=== PATIENT | male | born 1955 | race Caucasian/White ===

== ENCOUNTER 2024-02-18 10:09 | Outpatient (CLI) | payer MEDICARE, SELFPAY ==
--- NOTE | ~2024-02-18 | CT_ITS ---
EXAMINATION: CT shoulder LT wo con DATE: 02/18/2024 10:23 INDICATION: Left shoulder osteoarthritis. Preoperative planning. TECHNIQUE: Computed tomography (CT) of the left shoulder was performed without intravenous contrast. Automated exposure control and iterative reconstruction technique were employed. The dose-length prod uct was 763.13 mGy-cm. COMPARISON: None FINDINGS: There is posterior subluxation of humeral head with respect to glenoid. No fracture. There is advanced glenohumeral joint osteoarthritis including volume loss of the glenoid. There is a small glenohumeral joint effusion with loose bodies. There is moderate acromioclavicular joint osteoarthrit is. There is a 6 mm nodule in left lung upper lobe, probably benign. IMPRESSION: 1. Advanced left glenohumeral joint osteoarthritis. 2. Small left glenohumeral joint effusion with loose bodies. 3. Moderate acromioclavicular joint osteoarthritis. 4. 6 mm pulmonary nodule, probably benign. Consider noncontrast low-dose chest CT in 6-12 months. Reviewed, dictated and finalized at location B.
== END 2024-02-18 10:10 | disposition home or self-care (01) ==
LOC: ANHIMG 10:11
PROVIDERS: PCP Family Medicine; Visit Provider Orthopaedic Surgery
DX: M19.012 Primary osteoarthritis, left shoulder (principal); R91.1 Solitary pulmonary nodule; M24.012 Loose body in left shoulder
CPT/HCPCS: 73200

== ENCOUNTER 2024-05-01 09:59 | Outpatient (CLI) | payer MEDICARE, SELFPAY ==
[2024-05-01 11:12] LABS: Basophils Absolute Auto 0.1 K/mm3 (0.0-0.1); Basophils Percent Auto 0.7 % (0.2-1.2); Eosinophils Absolute Auto 0.1 K/mm3 (0-0.3); Eosinophils Percent Auto 1.7 % (0-4.4); Hematocrit 49.9 % (42.0-52.0); Hemoglobin 16.5 g/dL (14.0-18.0); Immature Granulocyte Absolute 0.02 K/mm3 (0.00-0.031); Immature Granulocyte Percent A 0.3 % (0-0.5); Lymphocytes Absolute Auto 0.86 K/mm3 (0.9-3.2); Mean Corpuscular HGB Conc 33.1 g/dl (32-36); Mean Corpuscular Hemoglobin 29.9 pg (26-34); Mean Corpuscular Volume 90.6 fl (80-100); Mean Platelet Volume 10.8 fl (7.4-10.4); Monocytes Absolute Auto 0.5 K/mm3 (0.1-0.6); Monocytes Percent Auto 7.5 % (2.6-8.5); Neutrophils Absolute Auto 5.6 K/mm3 (1.3-6.7); Neutrophils Percent Auto 77.8 % (45.5-73.1); Platelet Count Result 181 k/mm3 (150-375); Red Blood Count 5.51 M/mm3 (4.6-6.20); Red Cell Distribution Width 13.3 % (11.5-14.5); White Blood Count 7.2 K/mm3 (4.5-10.0)
[2024-05-01 11:21] LABS: Prothrombin Time 13.6 Seconds (11.1-14.7)
[2024-05-01 11:22] LABS: Anion Gap 9 mmol/L (4-12); Blood Urea Nitrogen 17 mg/dL (9-20); Calcium 8.7 mg/dL (8.4-10.2); Carbon Dioxide 25 mmol/L (22-30); Chloride 102 mmol/L (98-107); Estimated Glomerular Filt Rate > 60; Glucose 158 mg/dL (65-110); Partial Thromboplastin Time 30.3 Seconds (22.3-36.8); Sodium 136 mmol/L (137-145)
[2024-05-01 12:17] LABS: MRSA (PCR) NOT DETECTED (NOT DETECTE)
== END 2024-05-01 10:00 | disposition home or self-care (01) ==
LOC: ANHSURGERY 10:03
PROVIDERS: Anesthesiology; PCP Family Medicine; Visit Provider Orthopaedic Surgery
DX: M19.012 Primary osteoarthritis, left shoulder (principal); N18.9 Chronic kidney disease, unspecified; E11.9 Type 2 diabetes mellitus without complications
CPT/HCPCS: 36415; 80048; 85025; 85610; 85730; 87641

== ENCOUNTER 2024-12-07 13:18 | Outpatient (CLI) | payer MEDICARE, SELFPAY ==
--- NOTE | ~2024-12-07 | CT_ITS ---
EXAMINATION: CT_LELTCWO_CT DATE: 12/07/2024 13:38 INDICATION: Left knee osteoarthritis for preoperative planning TECHNIQUE: High resolution computed tomography (CT) of the left lower extremity from the hip through the ankle was performed without intravenous contrast. Additional sagittal and coronal reconstructions were performed. Automated exposure control and iterative reconstruction technique were employed. The dose- length product was 2033.75 mGy-cm. COMPARISON: None FINDINGS: No fracture or osteonecrosis. Tricompartmental osteoarthritis at the left knee with severe joint space narrowing with associated subarticular eburnation and degenerative cystlike changes along both sides of the joint space there are also moderate-sized marginal osteophytes. This results in mild left genu varum. Additional osteoarthritis with small to moderate-sized marginal osteophytes and relatively preserved at the lateral and patellofemoral compartment. Very small left knee joint effusion. Mild osteoarthritis of the left hip. Additional polyarticular osteoarthritis at the left foot and ankle, severe at the naviculocuneiform articulations with prominent subarticular cystlike changes at the articulations with the lateral and mid cuneiforms. Mild osteoarthritis at the left ankle and many of the remaining joints in the left foot. Small plantar calcaneal spur. Small heterotopic ossicles near the tip the medial malleolus likely sequela of chronic deltoid ligament sprain. The peroneal tendons appear thickened suggestive of tendinopathy although assessment is limited on CT. Visualized portion of the pelvis is unremarkable. No pathologically enlarged left pelvic or inguinal lymphadenopathy. IMPRESSION: 1. Tricompartmental osteoarthritis the left knee, severe in the medial compartment. Reviewed, dictated and finalized at location A. IMPRESSION: 1. Tricompartmental osteoarthritis the left knee, severe in the medial compartm ent.
--- OUTSIDE RECORDS SUMMARY | 2024-12-07 13:34 | XMS_ITS | Patient Health Record ---
Author Organization [facility] Address [address] [facility] [address] [place] [address] Care Team Providers Care Poultry Field Service Technician Name Role Phone Douglas Morocho Primary Care Provider Unavailtevin e DHARA GOSS, RADHA Unavailable Reason For Referral No Information Medications Medication SIG (Take, Route, Frequency, Duration) Notes Start Date End Date Status Omeprazole 20 MG 1 capsule Orally Onc e a day; Duration: 90 days Future refills will require OV or he can obtain for PCP 08/01/2018 Active Problems Problem Type SNOMED Code ICD Code Onset Dates Problem Status W/U Status Risk Notes Problem Gastro-esophagea l reflux disease without esophagitis (441881028) Gastro-esophage al reflux disease without esophagitis (K21.9) Active confirmed Plan Of Treatment Pending Test Test Name Order Date Colonoscopy 10/28/2017 Esophagogastroduodenoscopy (EGD) 018 Insurance Providers Payer Name Payer Address Payer Phone Subscriber Number Group Number Insured Name Patient Relationship to Insured Coverage Start Date Coverage End Date [facility] [address] [place], [place] [id number] Douglas Munoz Self - patient is the insured
== END 2024-12-07 13:19 | disposition home or self-care (01) ==
PROVIDERS: PCP Family Medicine; Visit Provider Orthopaedic Surgery
DX: M17.12 Unilateral primary osteoarthritis, left knee (principal)
CPT/HCPCS: 73700

== ENCOUNTER 2025-02-05 09:36 | Outpatient (CLI) | payer MEDICARE, SELFPAY ==
--- NOTE | 2025-02-05 09:59 | ECG_ITS ---
Test Date: 2025-02-05 10:07:40 Measurements Intervals [place] Rate: 68 P: 37 IA: 179 QRS: -12 QRSD: 119 T: 44 QT: 400 QTc: 428 Interpretive Statements SINUS RHYTHM WITH OCCASIONAL VENTRICULAR PREMATURE COMPLEXES INCOMPLETE RIGHT BUNDLE BRANCH BLOCK BORDERLINE ECG No previous ECG available for comparison Electronically Signed On 02-05-2025 10:39:50 CDT by Heath Mccoy D.O.
[2025-02-05 10:48] LABS: Hematocrit 50.5 % (42.0-52.0); Hemoglobin 16.7 g/dL (14.0-18.0)
--- OUTSIDE RECORDS SUMMARY | 2025-02-05 10:52 | XMS_ITS | Patient Health Record ---
Author Organization [facility] Address [address] [facility] [address] [place] [address] Care Team Providers Care Acid Painter Name Role Phone Douglas Morocho Primary Care Provider Unavailtevin e DHARA GOSS, RADHA Unavailable [phone] Reason For Referral No Information Medications Medication [...] Problem Gastro-esophagea l reflux disease without esophagitis (234323806) Gastro-esophage al reflux disease without esophagitis (K21.9) Active confirmed Plan Of Treatment Pending Test Test Name Order Date Colonoscopy 10/28/2017 Esophagogastroduodenoscopy (EGD) 018 Insurance Providers Payer Name Payer Address Payer Phone Subscriber Number Group Number Insured Name Patient Relationship to Insured Coverage Start Date Coverage End Date [facility] [address] [place], [place] [id number] Douglas Munoz Self - patient is the insured
--- OUTSIDE RECORDS SUMMARY | 2025-02-05 10:52 | XMS_ITS | Clinical Summary ---
Author Organization [facility] Address [facility] [place] [address] Care Team Providers Care Boat Carpenter Mechanic Name Role Phone Luis Enrique Bradford MD, Suresh Unavailable [phone] [facility] Unavailable [phone] Baron Davies MD Primary Care Provider [phone] Allergies No known active allergies Medications Glucosamine Sulfate 500 MG Tab Take 1 tablet by mouth 2 (two) times daily. Active aspirin 81 MG chewable tabletIndications:C oronary artery disease involving skokomish coronary artery of skokomish heart without angina pectoris,S/P drug eluting coronary stent placement Chew 1 tablet (81 mg total) by mouth daily. 90 tablet 1 5 Active empagliflozin (JARDIANCE) 25 MG tabletIndications:C lass 1 obesity due to excess calories with serious comorbidity and body mass index (BMI) of 34.0 to 34.9 in adult,Coronary artery disease involving skokomish coronary artery of skokomish heart without angina pectoris,S/P drug eluting coronary stent placement,Essential hypertension,Stage 2 chronic kidney disease,Type 2 diabetes mellitus with stage 2 chronic kidney disease, without long-term current use of insulin ([facility]) Take 1 tablet (25 mg total) by mouth daily. 90 tablet 1 5 Active metoprolol tartrate (LOPRESSOR) 25 MG tabletIndications:C oronary artery disease involving skokomish coronary artery of skokomish heart without angina pectoris,S/P drug eluting coronary stent placement,Essential hypertension Take 1 tablet (25 mg total) by mouth 2 (two) times daily. 180 tablet 1 5 Active rosuvastatin (CRESTOR) 40 MG tabletIndications:C oronary artery disease involving skokomish coronary artery of skokomish heart without angina pectoris,S/P drug eluting coronary stent placement,Mixed hyperlipidemia Take 1 tablet (40 mg total) by mouth nightly at bedtime. 90 tablet 1 5 Active nitroglycerin (NITROSTAT) 0.4 MG SL tabletIndications:C oronary artery disease involving skokomish coronary artery of skokomish heart without angina pectoris,S/P drug eluting coronary stent placement Place 1 tablet (0.4 mg total) under the tongue every 5 (five) minutes as needed for Chest Pain. 30 tablet 5 Active famotidine (PEPCID) 20 MG tabletIndications:G astroesophageal reflux disease without esophagitis,Esophag eal stricture Take 1 tablet (20 mg total) by mouth 2 (two) times daily. 180 tablet 1 5 Active vitamin D3, cholecalciferol, (D 5000) 125 mcg capsuleIndications: Vitamin D deficiency Take 1 capsule (125 mcg total) by mouth daily. 90 capsule 1 5 Active tamsulosin (FLOMAX) 0.4 MG CapIndications:Mitchell gn prostatic hyperplasia with weak urinary stream Take 1 capsule (0.4 mg total) by mouth daily. 90 capsule 1 5 Active acetaminophen (TYLENOL) 500 MG tabletIndications:A rthritis Take 2 tablets (1,000 mg total) by mouth 3 (three) times daily as needed. 30 tablet 5 Active celecoxib (CELEBREX) 100 MG capsuleIndications: Arthritis Take 1 capsule (100 mg total) by mouth daily. 90 capsule 1 5 Active semaglutide (RYBELSUS) 3 MG tabletIndications:D iabetes Mellitus Take 1 tablet (3 mg total) by mouth every morning before breakfast. Indications: Diabetes 30 tablet 2 5 Active Active Problems Problem Noted Date Diagnosed Date Type 2 diabetes mellitus wit h diabetic microalbuminuria, without long-term current use of insulin 12/26/2024 Esophageal stricture 12/25/2024 Benign prostatic hyperplasia with weak urinary s tream 08/01/2024 Class 1 obesity due to exces s calories with serious comorbidity and body mass index (BMI) of 34.0 to 34.9 in adult 01/20/2023 Vitamin D deficiency 07/21/2022 Stage 2 chronic kidney disease 07/24/2021 Gastroesophageal reflux disease without esophagi tis 05/28/2020 Essential hypertension 06/27/2018 Arthritis 09/29/2017 Overview (01/10/2019): Date Onset: 09/29/2017 PRAMOD (obstructive sleep apnea) 09/29/2017 Overview (01/10/2019): Date Onset: 09/29/2017 S/P drug eluting coronary stent placement 2017 Mixed hyperlipidemia 10/26/2011 Coronary artery disease invo lving skokomish coronary artery of skokomish heart without angina pectoris Type 2 diabetes mellitus wit h stage 2 chronic kidney disease, without long-term current use of insulin PVC's (premature ventricular contractions) Resolved Problems Problem Noted Date Diagnosed Date Resolved Date Dyslipidemia 01/20/2023 Encounters Date Type Department Care Team Description 12/29[facility] [address] [place] [phone] Brenda Meyer, ANP- Information 12/28/[address] [place] [address] [place] [address] Baron Davies MD Prior Authorization (PA request Rybelsus 3 mg) 12/26/2024 Results Follow-Up [facility] [address] [facility] [place] [address] [place] [address] Baron Davies MD HEMOGLOBIN, GLYCOSYLATED, ALBUMIN/CREATININE RATIO, RANDOM URINE 12/25/2024 10:54 AM CDT - 12/25/2024 11:59 PM CDT Hospital Encounter [facility] [address] [place] [address] [place] [address] Baron Davies MD Discharge Disposition: Home or Self Care (Routine Discharge) 12/25/2024 10:20 AM CDT Office Visit [facility] [address] [facility] [place] [address] [place] [address] Baron Davies MD Follow Up (Pt is here for a 6 mo f/u, Pt states he is doing well) 12/25/2024 Travel 12/07/2024 Scan [facility] Scanned, [facility] CT (SCAN) 11/27/2024 8:00 AM CDT Office Visit [facility] [address] [place] [address] Brenda Meyer, ANP- Follow Up 11/27/2024 Travel 11/23/2024 10:56 AM CDT - 11/23/2024 11:59 PM CDT Hospital Encounter [facility] [address] [address] [place] [place] [address] Efren Allen, Brittney Jain, PT Discharge Disposition: Home or Self Care (Routine Discharge) 11/23/2024 Travel 11/17/2024 7:00 AM CDT - 11/17/2024 11:59 PM CDT Hospital Encounter [facility] [address] [address] [address] [place] [place] [address] Efren Allen, Salvador Reilly, PT Shoulder Pain Discharge Disposition: Home or Self Care (Routine Discharge) 11/17/2024 Travel 11/06/2024 8:01 AM CDT - 11/06/2024 11:59 PM CDT Hospital Encounter [facility] [address] [place] [place] [address] Efren Allen, Salvador Reilly, PT Shoulder Discharge Disposition: Home or Self Care (Routine Discharge) 11/06/2024 Travel from Last 3 Months Immunizations Immunization Administration Dates Next Due Fluzone High Dose (IIV, triv alent, 0.5mL) 12/25/2024 Hepatitis A (Havrix 1440 El.U) 01/14/2016,2015 Influenza (Generic) 04/15/2017,05/30/2013 Influenza Adult (Generic) 01/23/2020,,04/25/2018,2015 Pneumococcal (Pneumovax 23) 05/28/2020 Pneumococcal (Prevnar 20) 02/01/2024 Shingrix 10/17/2019,06/27/2019 Tdap (Generic) 01/16/2019 Typhoid (Typhim ) 07/08/2015 Zoster (Zostavax) 95858 Unt/0.65Ml 06/26/2015 Family History Medical History Relation Comments Heart Attack Brother Open Heart Brother Arthritis Father Heart Attack Father Heart Disease Father Open Heart Father Heart Attack Mother Heart Disease Mother Stent Cardiac Mother Heart Attack Paternal Grandfather Heart Attack Paternal Grandmother Relation Status Comments Brother Alive Father Maternal Grandfather Maternal Grandmother Mother Paternal Grandfather Paternal Grandmother Sister Alive Social History Tobacco Use Types Packs/Day Years Used Date Smoking Tobacco: Never Smokeless Tobacco: Never Tobacco Cessation:Counseling Given: No Alcohol Use Standard Drinks/Week Comments No 0 (1 standard drink = 0.6 oz pur e alcohol) PHQ-2 Answer Date Recorded Patient Health Questionnaire-2 Score 0 08/01/2024 Sex and Gender Information Value Date Recorded Sex Assigned at Male 06/13/2024 9:07 AM VICE PROVOST Legal Sex Male 7:56 PM CDT Gender Identity Not on file Sexual Orientation Not on file Occupation Industry Job Start Date Job End Date [place] Not on file Not on file Not on file Last Filed Vital Signs Vital Sign Reading Time Taken Comments Blood Pressure 112/64 12/25/2024 10:19 AM CDT Pulse 68 12/25/2024 10:19 AM CDT Temperature 36.5 C (97.7 F) 12/25/2024 10:19 AM CDT Respiratory Rate 16 12/25/2024 10:19 AM CDT Oxygen Saturation 98% 12/25/2024 10:19 AM CDT Inhaled Oxygen Concentration - - Weight 116.6 kg (257 lb) 12/25/2024 10:19 AM CDT Height 182.9 cm (6') 12/25/2024 10:19 AM CDT Body Mass Index 34.86 12/25/2024 10:19 AM CDT Plan of Treatment Upcoming Encounters Date Type Department Care Team (Late st Contact Info) Description 06/25/2025 7:00 AM CDT Office Visit [facility] [address] [place] [address] [place] [address] Baron Davies MD [address] [place] [id number] 2025 8:00 AM CDT Office Visit [facility] [place] [phone] Brenda Meyer, ANP-BC [address] [facility] [address] [place] [phone] Health Maintenance Due Date Last Done Comments Hepatitis C 12/02/1973 RSV Immunization or 60+ Years (1 - Risk 60-74 years 1-dose series) 2015 Annual Medicare Wellness Visit 12/02/2020 COVID-19 Vaccine (2024- season) 2024 07/25/2020, 06/27/2020 Hemoglobin A1C 06/24/2025 12/25/2024, 07/18, 02/01/2024, Additional history exists Lipid Panel 08/01/2025 08/01/2024, 0407/2023, 07/31/2022, Additional history exists Kidney Health Evaluation 12/25/2025 12/25/2024 Diabetes: Retinopathy Eye Exam 06/29/2026 06/29/2024, 07/15/2023 Colorectal Cancer Screening Colonoscopy (10 Years) 10/29/2027 10/28/2017 DTaP, Tdap and Td Vaccines (2 - Td or Tdap) 01/16/2029 01/16/2019 Hepatitis A Vaccines Aged Out 01/14/2016, 07/08/19 16 No longer eligible based on patient's age to complete this topic Zoster Vaccines Completed 10/17/2019, 06/17, 06/26/2015 Pneumococcal Vaccine: 50+ Years Completed 02/01/2024, 05/28/2020 PHQ-2 (Physician [place]) Completed 08/01/2024 Influenza Adult Completed 12/25/2024, 09/2019, 01/16/2019, Additional history exists Meningococcal B Vaccine Aged Out No l onger eligible based on patient's age to complete this topic Meningococcal Vaccine Aged Out No chayo jack eligible based on patient's age to complete this topic RSV Immunizations Under 20 Months Aged Out No longer eligible based on patient's age to complete this topic Medical Devices Implanted Type Area Wood Crew Supervisor Device Identifier Shelf Expiration Date Model / Serial / Lot Cv Xience Lui Rca-04/18/2019 3.5mm X 23mm Implanted:Qty: 1 on 04/18/2019 by Igor Colmenares MD Stent Heart [employer] 02/10/2020 [id number] Procedures Procedure Name Priority Date/Time Associated Diagnosis Comments ALBUMIN URINE RANDOM W/CREATININE Routine 12/25/2024 10:56 AM CDT Stage 2 chronic kidney disease Type 2 diabetes mellitus with stage 2 chronic kidney disease, without long-term current use of insulin ([facility]) HEMOGLOBIN, GLYCOSYLATED Routine 12/25/2024 10:56 AM CDT Type 2 diabetes mellitus with stage 2 chronic kidney disease, without long-term current use of insulin ([facility]) CT GENERIC 12/07/2024 LIPID PANEL Routine 08/01/2024 7:40 AM CDT Annual physical exam Class 2 severe obesity due to excess calories with serious comorbidity and body mass index (BMI) of 35.0 to 35.9 in adult Lipid screening Coronary artery disease involving skokomish coronary artery of skokomish heart without angina pectoris S/P drug eluting coronary stent placement Mixed hyperlipidemia Type 2 diabetes mellitus with stage 2 chronic kidney disease, without long-term current use of insulin ([facility]) DIABETIC RETINOPATHY EXAM (NEGATIVE)(SCAN ORDER) Routine 06/29/2024 COLONOSCOPY GENERIC (SCAN ORDER) Routine 10/28/2017 12:00 AM CDT from Last 3 Months or Most Recently Relevant to Health Maintenance Results * (ABNORMAL) HEMOGLOBIN, GLYCOSYLATED (12/25/2024 10:56 AM CDT) HGB A1C 6.9(H) <5.7 % 12/25/2024 10:31 PM CDT [facility] Comment: ADA GUIDELINES 2010 5.7 TO 6.4% INCREASED RISK OF DIABETES > OR = 6.5% CONSISTENT WITH DIABETES ESTIMATED AVG GLUCOSE 151 mg/dL 12/25/2024 10:31 PM CDT [facility] 12/25/2024 10:5 6 AM CDT Baron Davies MD LABORATORY Final Result Performing Organization Address [facility] Co de Phone Number [facility] [address] [place] [phone], * ALBUMIN/CREATININE RATIO, RANDOM URINE (12/25/2024 10:56 AM CDT) CREATININE RANDOM (U) 78.3 39 - 259 MG/DL 12/25/2024 10:17 PM CDT [facility] MICROALBUMIN (U) 0.7 <2.0 mg/dL 12/26/19 10:17 PM CDT [facility] ALBUMIN/CREAT RATIO 9.1 <30 MG/G 12/25/2024 10:17 PM CDT [facility] URINE SPECIMEN / Unknown 12/25/2024 10:56 AM CDT Baron Davies MD URINE ORDERABLES Final Resul t Performing Organization Address City/[facility] Co de Phone Number [facility] [address] [place] [phone], * CT GENERIC (12/07/2024) Anatomical Region Laterality Modality Other 12/07/2024 [facility] Scanned SCANNING Final Resu lt * LIPID PANEL (08/01/2024 7:40 AM CDT) CHOLESTEROL 127 <200 MG/DL 08/01/2024 3:01 PM CDT [facility] TRIGLYCERIDES 104 <150 MG/DL 08/01/2024 3:01 PM CDT [facility] HDL 52 >40.0 MG/DL 08/01/2024 3:01 PM CDT [facility] LDL (CALCULATED) 54 <100 MG/DL 08/02/19 25 3:01 PM CDT [facility] NON HDL CHOLESTEROL 75 <130 MG/DL 08/01 3:01 PM CDT [facility] CHOL/HDL RATIO 2.4 0.0 - 4.5 08/01/2024 3:01 PM CDT [facility] VLDL CALCULATION 21 5 - 55 MG/DL 08/01/2024 3:01 PM CDT [facility] LIPID INTERPRETATION 08/01/2024 3:01 PM CDT [facility] Comment: NIH CONCENSUS REPORT RECOMMENDATIONS: ADULT CHILD LOW RISK: CHOLESTEROL <200 <170 TRIGLYCERIDE <150 --- HDL >=60 --- LDL <100 <110 BORDERLINE: CHOLESTEROL 200-239 170-199 TRIGLYCERIDE 150-199 --- HDL 40-59 --- LDL 100-159 110-129 HIGH RISK: CHOLESTEROL >=240 >=200 TRIGLYCERIDE >=200 --- HDL <40 --- LDL >=160 >=130 08/01/2024 7:40 AM CDT Baron Davies MD LABORATORY Final Result [facility] [address] [place] [address], [place] [phone] * DIABETIC RETINOPATHY EXAM (NEGATIVE) (06/29/2024) [facility] Scanned SCANNING Final Resu lt [facility] * COLONOSCOPY (10/28/2017 12:00 AM CDT) 10/28/2017 us Documents Scanned SCANNING Final Result [facility] [place] from Last 3 Months or Most Recently Relevant to Health Maintenance Insurance MEDICARE [facility] Member Subscriber Plan / Payer (Ef fective 2020-Present) Name:Douglas Harden Relation to Subscriber:Self Name:Douglas Harden Payer ID:Not on file Group ID:[id number] Type:Indemnity Address: [address] [place] [address] Care Teams Boat Carpenter Mechanic Relationship Specialty Start Date End Date Baron Davies MD [address] [place] [address] [address] [place] [address] PCP - General FAMILY PRACTICE 11/21/19 Suresh Dudley MD [place] Seed Cleaner Operator CARDIOVASCULAR DISEASE 05/25/17 Brenda Meyer, [facility] [address] [address] [place] [address] NURSE PRACTITIONER 05/25/17
--- OUTSIDE RECORDS SUMMARY | 2025-02-05 10:52 | XMS_ITS | Encounter Summary ---
Author Organization [facility] Address [facility] [place] [address] Care Team Providers Care Registered Nurse Cardiac Telemetry Name Role Phone Douglas Carrasquillo MD Primary Care Provider + [phone] Luis Enrique Bradford MD, Suresh Unavailable [phone] Brenda Meyer [employer] [facility] [employer] [facility] [facility] Unavailable [phone] Baron Davies MD Primary Care Provider + [phone] Encounter Details Date Type Department Care Team (Late st Contact Info) Description 06/29/2018 Abstract [facility] [address] [place] [address] Suresh Dudley MD [address] [facility] [address] [place] [phone] Social History Tobacco Use Types Packs/Day Years Used Date Smoking Tobacco: Never Smokeless Tobacco: Never Alcohol Use Standard Drinks/Week Comments No 0 (1 standard drink = 0.6 oz pur e alcohol) Sex and Gender Information Value Date Recorded Sex Assigned at Male 06/13/2024 9:07 AM DECKHAND FISHING VESSEL Legal Sex Male 7:56 PM CDT Gender Identity Not on file Sexual Orientation Not on file Occupation Industry Job Start Date Job End Date [place] Not on file Not on file Not on file documented as of this encounter Plan of Treatment Upcoming Encounters Date Type Department Care Team (Late st Contact Info) Description 06/25/2025 7:00 AM CDT Office Visit [address] [place] [address] Baron Davies MD [address] [place] [address] 2025 8:00 AM CDT Office Visit [place] [facility] [address] [place] [phone] Brenda Meyer, ANP-BC [address] [facility] [address] [place] [phone] documented as of this encounter Procedures Procedure Name Priority Date/Time Associated Diagnosis Comments CMP (ABSTRACTED LAB) Routine 06/24/2018 CBC (OUTSIDE LAB) Routine 06/24/2018 THYROID STIM HORMONE TSH Routine 06/24/2018 documented in this encounter Results * CMP (ABSTRACTED LAB) (06/24/2018) SODIUM S/P/B 137 POTASSIUM S/P/B 4.1 CHLORIDE S/P/B 102 CO2 25 BUN 19 CREATININE S/P/B 0.9 0.7 - 1.3 CALCIUM S/P/B 8.6 GLUCOSE 124 mg/dL TOTAL PROTEIN S/P/B 7.2 ALBUMIN S/P/B 3.9 3.5 - 5.0 AST 24 ALT 40 ALKALINE PHOSPHATASE S/P/B 84 BILIRUBIN TOTAL S/P/B 0.6 06/24/2018 us Colten Vasquez MD LAB-OUTSIDE/ABSTRACTED Final Re sult * THYROID STIM HORMONE, TSH (06/24/2018) TSH 2.79 0.35 - 3.7 06/24/2018 us Colten Vasquez MD LABORATORY Final Result * CBC (OUTSIDE LAB) (06/24/2018) WBC 5.7 HGB 15.3 HCT 47.5 PLT 227 RBC 5.4 06/24/2018 Colten Vasquez MD LAB-OUTSIDE/ABSTRACTED Final Re sult documented in this encounter Visit Diagnoses Not on filedocumented in this encounter Additional Health Concerns Infection Onset Date Last Indicated Resolved Time COVID-19 Rule Out 03/01/2021 03/01/2021 03/01/2021 10:36 AM DECKHAND FISHING VESSEL COVID-19 Rule Out 03/03/2021 03/03/2021 03/03/2021 7:54 PM DECKHAND FISHING VESSEL documented as of this encounter Care Teams Registered Nurse Cardiac Telemetry Relationship Specialty Start Date End Date Douglas Carrasquillo MD [address] [place] [address] PCP - General FAMILY PRACTICE 05/25/17 11/20/19 Baron Davies MD [address] [place] [address] PCP - General FAMILY PRACTICE 11/21/19 Suresh Dudley MD [address] [place] [address] [place] Multi Disciplined Language Analyst CARDIOVASCULAR DISEASE 05/25/17 Brenda Meyer, ANP- [address] [facility] [address] [place] [address] NURSE PRACTITIONER 05/25/17 documented as of this encounter
[2025-02-05 10:58] LABS: Hemoglobin A1C 6.1 % (<5.7)
[2025-02-05 11:12] LABS: Albumin Level 4.3 g/dL (3.5-5.1); Estimated Glomerular Filt Rate > 60; Glucose 140 mg/dL (65-110)
== END 2025-02-05 09:37 | disposition home or self-care (01) ==
PROVIDERS: PCP Family Medicine; Visit Provider Orthopaedic Surgery
DX: E11.9 Type 2 diabetes mellitus without complications (principal); Z01.818 Encounter for other preprocedural examination; N18.9 Chronic kidney disease, unspecified; E78.5 Hyperlipidemia, unspecified; M17.12 Unilateral primary osteoarthritis, left knee; Z95.5 Presence of coronary angioplasty implant and graft
CPT/HCPCS: 36415; 82040; 82565; 82947; 83036; 85014; 85018; 93005

== ENCOUNTER 2025-04-04 12:07 | Outpatient (CLI) | payer MEDICARE, SELFPAY ==
[2025-04-04 13:08] LABS: Hematocrit 48.8 % (42.0-52.0); Hemoglobin 16.2 g/dL (14.0-18.0); Immature Granulocyte Percent A 0.4 % (0-0.5); Lymphocytes Absolute Auto 0.87 K/mm3 (0.9-3.2); Mean Corpuscular HGB Conc 33.2 g/dl (32-36); Mean Corpuscular Hemoglobin 29.5 pg (26-34); Mean Corpuscular Volume 88.9 fl (80-100); Nucleated Red Blood Cells Absolute Auto 0.000 K/mm3 (0.0-0.012); Nucleated Red Blood Cells Perc 0.0 % (0.0-0.2); Platelet Count Result 178 k/mm3 (150-375); Red Blood Count 5.49 M/mm3 (4.6-6.20); White Blood Count 5.4 K/mm3 (4.5-10.0)
[2025-04-04 13:20] LABS: INR 1.0; Partial Thromboplastin Time 31.7 Seconds (22.3-36.8); Prothrombin Time 13.5 Seconds (11.1-14.7)
[2025-04-04 13:25] LABS: Albumin Level 4.1 g/dL (3.5-5.1)
[2025-04-04 13:29] LABS: Anion Gap 7 mmol/L (4-12); Blood Urea Nitrogen 18 mg/dL (9-20); Calcium 9.0 mg/dL (8.4-10.2); Carbon Dioxide 26 mmol/L (22-30); Chloride 106 mmol/L (98-107); Estimated Glomerular Filt Rate > 60; Glucose 156 mg/dL (65-110); Potassium 4.1 mmol/L (3.4-5.0); Sodium 139 mmol/L (137-145)
--- OUTSIDE RECORDS SUMMARY | 2025-04-04 14:05 | XMS_ITS | Patient Health Record ---
Author Organization [facility] Address [address] [facility] [address] [place] [address] Care Team Providers Care Physician Interventional Cardiologist Name Role Phone Douglas Morocho Primary Care Provider Unavailtevin e DHARA GOSS, RADHA Unavailable [phone] Reason For Referral No Information Medications Medication [...] Problem Gastro-esophagea l reflux disease without esophagitis (203091651) Gastro-esophage al reflux disease without esophagitis (K21.9) Active confirmed Plan Of Treatment Pending Test Test Name Order Date Colonoscopy 10/28/2017 Esophagogastroduodenoscopy (EGD) 018 Insurance Providers Payer Name Payer Address Payer Phone Subscriber Number Group Number Insured Name Patient Relationship to Insured Coverage Start Date Coverage End Date [facility] [address] [place], [place] [id number] Douglas Munoz Self - patient is the insured
--- OUTSIDE RECORDS SUMMARY | 2025-04-04 14:05 | XMS_ITS | Encounter Summary ---
Author Organization [facility] Address [facility] [place] [address] Care Team Providers Care Meter Shop Superintendent Name Role Phone Douglas Carrasquillo MD Primary Care Provider + [phone] Luis Enrique Bradford MD, Suresh Unavailable [phone] Brenda Meyer [facility] Unavailable [phone] Baron Davies MD Primary Care Provider + [phone] Encounter Details Date Type Department Care Team (Late st Contact Info) Description 06/29/2018 Abstract [facility] [address] [place] [address] Suresh Dudley MD [address] [phone] Social History Tobacco Use Types Packs/Day Years Used Date Smoking Tobacco: Never Smokeless Tobacco: Never Alcohol Use Standard Drinks/Week Comments No 0 (1 standard drink = 0.6 oz pur e alcohol) Sex and Gender Information Value Date Recorded Sex Assigned at Male 06/13/2024 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 Sex Male 7:56 PM CDT Gender Identity Not on file Sexual Orientation Not on file Occupation Industry Job Start Date Job End Date [place] Not on file Not on file Not on file documented as of this encounter Plan of Treatment Upcoming Encounters Date Type Department Care Team (Late st Contact Info) Description 06/25/2025 7:00 AM CDT Office Visit [address] [place] [phone] Baron Davies MD [address] [place] [phone] 2025 8:00 AM CDT Office Visit [place] [facility] [place] [phone] Brenda Meyer, ANP- [address] [facility] [address] [place] [phone] documented as of this encounter Procedures Procedure [...] Rule Out 03/01/2021 03/01/2021 03/01/2021 10:36 AM SOIL TESTER COVID-19 Rule Out 03/03/2021 03/03/2021 03/03/2021 7:54 PM SOIL TESTER documented as of this encounter Care Teams Meter Shop Superintendent Relationship Specialty Start Date End Date Douglas Carrasquillo MD [address] [place], [place] [phone] PCP - General FAMILY PRACTICE 05/25/17 11/20/19 Baron Davies MD [address] [place] [address] [place] [phone] PCP - General FAMILY PRACTICE 11/21/19 Suresh Dudley MD [address] [place] [phone] [place] Service Assistant CARDIOVASCULAR DISEASE 05/25/17 Brenda Meyer, ANP- [address] [place] [address] [place] [phone] NURSE PRACTITIONER 05/25/17 documented as of this encounter
--- OUTSIDE RECORDS SUMMARY | 2025-04-04 14:05 | XMS_ITS | Clinical Summary ---
Author Organization [facility] Address [facility] [place] [address] Care Team Providers Care Marketing Associate Name Role Phone Luis Enrique Bradford MD, Suresh Unavailable [phone] [facility] [phone] Baron Davies MD Primary Care Provider + [phone] Allergies No known active allergies Medications Glucosamine Sulfate 500 MG Tab Take 1 tablet by mouth 2 (two) times daily. 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 90 tablet 1 5 Active empagliflozin (JARDIANCE) 25 MG tabletIndications:C lass 1 obesity due to excess calories with serious comorbidity and body mass index (BMI) of 34.0 to 34.9 in adult,Coronary artery disease involving pamunkey coronary artery of pamunkey heart without angina pectoris,S/P drug eluting coronary stent placement,Essential hypertension,Stage 2 chronic kidney disease,Type 2 diabetes mellitus with stage 2 chronic kidney disease, without long-term current use of insulin ([facility]) Take 1 tablet (25 mg total) by mouth daily. 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,S/P drug eluting coronary [...] hyperlipidemia 10/26/2011 Coronary artery disease invo lving pamunkey coronary artery of pamunkey heart without angina pectoris Type 2 diabetes mellitus wit h stage 2 chronic kidney disease, without long-term current use of insulin PVC's (premature ventricular contractions) Resolved Problems Problem Noted Date Diagnosed Date Resolved Date Dyslipidemia 01/20/2023 Immunizations Immunization Administration Dates Next Due Fluzone High Dose (IIV, triv alent, 0.5mL) 12/25/2024 Hepatitis A (Havrix 1440 El.U) 01/14/2016,2015 Influenza (Generic) 04/15/2017,05/30/2013 Influenza Adult (Generic) 01/23/2020,,04/25/2018,2015 Pneumococcal (Pneumovax 23) 05/28/2020 Pneumococcal (Prevnar 20) 02/01/2024 Shingrix 10/17/2019,06/27/2019 Tdap (Generic) 01/16/2019 Typhoid (Typhim ) 07/08/2015 Zoster (Zostavax) 59793 Unt/0.65Ml 06/26/2015 Family History Medical History Relation [...] Sex Assigned at Male 06/13/2024 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 Legal Sex Male 7:56 PM CDT Gender [...] Description 06/25/2025 7:00 AM CDT Office Visit [address] [place] [phone] Baron Davies MD [address] [place] [phone] 2025 8:00 AM CDT Office Visit [facility] [place] [address] Brenda Meyer, ANP-BC [address] [phone] Health Maintenance Due Date Last Done Comments Hepatitis C 12/02/1973 RSV Immunization or 60+ Years (1 - Risk 60-74 years 1-dose series) 2015 Annual Medicare Wellness Visit 12/02/2020 COVID-19 Vaccine ( season) 2024 07/25/2020, 06/27/2020 Hemoglobin A1C 06/24/2025 12/25/2024, 07/18, 02/01/2024, Additional history exists Lipid Panel 08/01/2025 08/01/2024, 0 07/2023, 07/31/2022, Additional history exists Kidney Health Evaluation [...] 50+ Years Completed 02/01/2024, 05/28/2020 PHQ-2 (Physician [place]) Completed 08/01/2024 Influenza Adult Completed 12/25/2024, 09/2019, [...] this topic Medical Devices Implanted Type Area Astronautical Engineer Device Identifier Shelf Expiration Date Model / Serial / Lot Cv Xience Lui Rca-04/18/2019 3.5mm X 23mm Implanted:Qty: 1 on 04/18/2019 by Igor Colmenares MD Stent Heart [employer] 02/10/2020 [id number] Procedures Procedure Name Priority Date/Time Associated Diagnosis Comments HC GLYCOSYLATED HGB Routine 12/25/2024 1 0:56 AM CDT Type 2 diabetes mellitus with stage 2 chronic kidney disease, without long-term current use of insulin ([facility]) LIPID PANEL Routine 08/01/2024 7:40 AM CDT Annual physical exam Class 2 severe obesity due to excess calories with serious comorbidity and body mass index (BMI) of 35.0 to 35.9 in adult Lipid screening Coronary artery disease involving pamunkey coronary artery 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 Comment: ADA GUIDELINES 2010 5.7 TO 6.4% INCREASED RISK OF DIABETES > OR = 6.5% CONSISTENT WITH DIABETES ESTIMATED AVG GLUCOSE 151 mg/dL 12/25/2024 10:[address] [facility] 12/25/2024 10:5 6 AM CDT Baron Davies MD LABORATORY Final Result [facility] [address] [place] [address], [place] [phone] * LIPID PANEL (08/01/2024 7:40 AM CDT) CHOLESTEROL 127 <200 MG/DL 08/01/2024 3:[address] [facility] TRIGLYCERIDES 104 <150 MG/DL 08/01/2024 3:[address] [facility] HDL 52 >40.0 MG/DL 08/01/2024 3:[address] [facility] LDL (CALCULATED) 54 <100 MG/DL 08/02/19 3:[address] [facility] NON HDL CHOLESTEROL 75 <130 MG/DL 08/01 3:[address] [facility] CHOL/HDL RATIO 2.4 0.0 - 4.5 08/01/2024 3:[address] [facility] VLDL CALCULATION 21 5 - 55 MG/DL 08/01/2024 3:[address] [facility] LIPID INTERPRETATION 08/01/2024 3:[address] [facility] Comment: [facility] REPORT RECOMMENDATIONS: ADULT CHILD LOW RISK: CHOLESTEROL <200 <170 TRIGLYCERIDE <150 --- HDL >=60 --- LDL <100 <110 BORDERLINE: CHOLESTEROL 200-239 170-199 TRIGLYCERIDE 150-199 --- HDL 40-59 --- LDL 100-159 110-129 HIGH RISK: CHOLESTEROL >=240 >=200 TRIGLYCERIDE >=200 --- HDL <40 --- LDL >=160 >=130 08/01/2024 7:40 AM CDT Baron Davies MD LABORATORY Final Result Performing Organization Address City/[facility]/ZIP Co de Phone Number [facility] [address] [place] [address], [place] [phone] * DIABETIC RETINOPATHY EXAM (NEGATIVE) (06/29/2024) [facility] Scanned SCANNING Final Resu lt Performing Organization Address City/[facility]/ZIP Co de Phone Number [facility] ONBASE * COLONOSCOPY (10/28/2017 12:00 AM CDT) 10/28/2017 us Documents Scanned SCANNING Final Result [id number] from Last 3 Months or Most Recently Relevant to Health Maintenance Insurance MEDICARE [facility] Member Subscriber Plan / Payer ( fective 2020-Present) Name:Douglas Harden Relation to Subscriber:Self Name:Douglas Harden Payer ID:Not on file Group ID:[id number] Type:Indemnity Address: [address] [place] [id number] Care Teams Marketing Associate Relationship Specialty Start Date End Date Baron Davies MD [address] [place] [address] [address] [place] [phone] PCP - General FAMILY PRACTICE 11/21/19 Suresh Dudley MD [place] International Trade Specialist CARDIOVASCULAR DISEASE 05/25/17 Brenda Meyer, [facility]- [address] [facility] [address] [place] [phone] NURSE PRACTITIONER 05/25/17
[2025-04-04 14:18] LABS: MRSA (PCR) NOT DETECTED (NOT DETECTE)
[2025-04-04 16:18] LABS: Hemoglobin A1C 6.3 % (<5.7)
== END 2025-04-04 12:08 | disposition home or self-care (01) ==
LOC: ANHSURGERY 12:11
PROVIDERS: Anesthesiology; PCP Family Medicine; Visit Provider Orthopaedic Surgery
DX: M17.12 Unilateral primary osteoarthritis, left knee (principal); N18.9 Chronic kidney disease, unspecified; Z01.818 Encounter for other preprocedural examination
CPT/HCPCS: 36415; 80048; 80307; 82040; 83036; 85025; 85610; 85730; 87641